=== PATIENT | female | born 1980 | race African-American/Black ===

== ENCOUNTER 2018-08-23 13:27 | Observation (INO) | payer OTHER ==
[~2018-08-23] VITALS: Ht 160 cm; Wt 59.0 kg
--- NOTE | 2018-08-23 13:45 | NUR ---
PATIENT ARRIVED TO UNIT AND AMBULATED TO FLOOR. DENIES ANY DIZZINESS OR HEADACHE. STATES GOES TO WORKOUT ALL THE TIME AND DOES FINE.
[2018-08-23 13:56] VITALS: BP 111/62
--- NOTE | 2018-08-23 14:50 | NUR ---
PATIENT WAS UNDECIDED ON HAVING BLOOD TRANSFUSION. AFTER A LENGTHY DISCUSSION TO WHAT COULD GO WRONG IF SHE DID NOT HAVE THE BLOOD TRANSFUSION, SHE WAS CONVINCED WHEN TOLD TO DO IT FOR HER KIDS IF SHE DID NOT WANT TO DO IT FOR HERSELF. PATIENT ALSO MADE AWARE OF NEED TO SIGN REFUSAL OF TREATMENT RECOMMENDED BY HER DOCTOR IF SHE WAS REFUSING BLOOD TRANSFUSION. PATIENT AGREED TO HAVE TRANSFUSION AND FINALLY SIGNED CONSENT AT 1520.
[2018-08-23 14:59] LABS: BASOPHILS % (AUTO) 1.2 % (0.0-5.0); EOSINOPHILS % (AUTO) 0.1 % (0.0-8.0); LYMPHOCYTES % (AUTO) 54.1 % (21.0-51.0); MEAN CORPUSCULAR HEMOGLOBIN 11.9 pg (27.0-33.0); MEAN CORPUSCULAR HGB CONC 24.5 g/dL (32.0-36.0); MEAN CORPUSCULAR VOLUME 48.5 fL (79-99); MONOCYTES % (AUTO) 11.7 % (3.0-13.0); NEUTROPHILS % (AUTO) 32.9 % (40.0-77.0); NUCLEATED RED BLOOD CELLS 0.4 % (0.0-0.19); PLATELET COUNT (AUTO) 271 K/uL (130-400); RED BLOOD CELL COUNT(AUTO) 4.08 MIL/uL (4.00-5.50); RED CELL DISTRIBUTION WIDTH 22.5 % (11.0-15.5); WHITE BLOOD COUNT (AUTO) 3.5 K/uL (4.8-10.8)
[2018-08-23 15:04] LABS: % IRON SATURATION 1.8 % (22-44)
[2018-08-23 15:13] LABS: HEMATOCRIT 19.8 % (36-48)
[2018-08-23 15:14] LABS: RETICULOCYTE % (AUTO) 1.06 % (0.42-2.23)
[2018-08-23 15:41] VITALS: BP 116/61
[2018-08-23 19:15] VITALS: BP 104/53
--- NOTE | 2018-08-23 19:15 | NUR ---
REPORT GIVEN TO ASHLY SMITH AND NOTED FIRST UNIT OF BLOOD WAS FINISHED. PATIENT STABLE. 2ND UNIT ORDERED.
[2018-08-23 23:16] VITALS: BP 116/60
--- NOTE | 2018-08-24 01:30 | NUR ---
COMMUNICATION: Dr. Abad called informed that after the 3rd unit of Blood Transfusion Hemoglobin and Hematocrit was done per Laboratory protocol. The result was hemoglobin 7.6 and hematocrit of 27.0. She ordered that patient can go home to take iron tablet over the counter daily. Cancel the 4th unit of blood. Patient informed.
[2018-08-24] MEDS ORDERED: FERR-82 PO (01:48)
--- NOTE | 2018-08-24 02:05 | NUR ---
Discharges Instruction given to patient; Patient advice to take Iron tablet over the counter medication daily, Eat fruits and vegetables rich in Iron. Call Dr. Abad' clinic to make a follow up appointment. In case of emergency call 911. Patient verbalizes understanding.
[2018-08-24 02:13] VITALS: BP 117/62
--- NOTE | 2018-08-24 02:20 | NUR ---
Discharges: Patient discharges per wheelchair accompanied by Kellie Martinez&Jamarcus Powers Out of the facility on her private car.
== END 2018-08-24 02:19 | disposition home or self-care (01) ==
LOC: WSH 13:27
PROVIDERS: ADMIT Obstetrics & Gynecology; ATTEND Obstetrics & Gynecology
DX: O99.011 Anemia complicating pregnancy, first trimester (principal); O09.511 Supervision of elderly primigravida, first trimester; N92.0 Excessive and frequent menstruation with regular cycle; O26.891 Other specified pregnancy related conditions, first trimester; Z3A.01 Less than 8 weeks gestation of pregnancy
CPT/HCPCS: 36415 ×2; 36430; 82607; 82728; 83020; 85014; 85018; 85025; 85060; 86850; 86900; 86901; 86922 ×4; G0378 ×14; J7030; P9016 ×3

== ENCOUNTER 2018-09-29 09:25 | Emergency (ER) | payer OTHER ==
[~2018-09-29 09:25] MED LIST: FERR-82 PO
== END 2018-09-29 09:54 | disposition home or self-care (01) ==
LOC: EDH 09:25
DX: Z02.83 Encounter for blood-alcohol and blood-drug test (principal); Z72.0 Tobacco use

== ENCOUNTER 2019-02-09 23:18 | Emergency (ER) | payer OTHER ==
[2019-02-09 23:48] LABS: BILIRUBIN,URINE Negative (NEGATIVE); COLOR,URINE Dark Yellow (YELLOW); GLUCOSE, URINE (UA) Negative (NEGATIVE); KETONES,URINE Negative (NEGATIVE); LEUKOCYTE ESTERASE ,URINE Large (NEGATIVE); NITRATE,URINE Positive (NEGATIVE); OCCULT BLOOD,URINE Large (NEGATIVE); PROTEIN,URINE Negative (NEGATIVE)
[2019-02-09 23:49] LABS: HCG,QUAL RESULT NEGATIVE (NEGATIVE)
[2019-02-09 23:50] LABS: APPEARANCE,URINE SLIGHTLY CLOUDY (CLEAR)
[2019-02-09 23:59] LABS: BACTERIA,URINE Few /HPF (None Seen); WBC,URINE 51-100 /HPF (0-1)
[2019-02-10] MEDS ORDERED: ACETAMINOPHEN 325 MG TAB ONE (00:06)
[2019-02-10] MEDS ORDERED: SODIUM CHLORIDE 0.9% 1000ML 1,000 ML IV ONE (00:06)
[2019-02-10 00:09] LABS: BASOPHILS % (AUTO) 0.4 % (0.0-5.0); EOSINOPHILS % (AUTO) 0.2 % (0.0-8.0); HEMATOCRIT 26.2 % (36-48); LYMPHOCYTES % (AUTO) 13.1 % (21.0-51.0); MEAN CORPUSCULAR HEMOGLOBIN 18.5 pg (27.0-33.0); MEAN CORPUSCULAR HGB CONC 27.1 g/dL (32.0-36.0); MEAN CORPUSCULAR VOLUME 68.4 fL (79-99); MONOCYTES % (AUTO) 13.4 % (3.0-13.0); NEUTROPHILS % (AUTO) 72.6 % (40.0-77.0); PLATELET COUNT (AUTO) 580 K/uL (130-400); RED BLOOD CELL COUNT(AUTO) 3.83 MIL/uL (4.00-5.50); RED CELL DISTRIBUTION WIDTH 20.1 % (11.0-15.5); WHITE BLOOD COUNT (AUTO) 9.1 K/uL (4.8-10.8)
[2019-02-10] MEDS ORDERED: CEFTRIAXONE SODIUM 1 GM ONE (00:16)
[2019-02-10] MEDS ORDERED: SODIUM CHLORIDE 0.9% 50 ML IV ONE (00:17)
[2019-02-10 00:21] LABS: CREATININE 0.8 mg/dL (0.5-1.5); POTASSIUM 3.9 mmol/L (3.5-5.1)
[2019-02-10 00:27] LABS: ALBUMIN 3.5 g/dL (3.5-5.0); BILIRUBIN,TOTAL 0.3 mg/dL (0.2-1.0)
[2019-02-10 00:34] LABS: PLATELET MORPHOLOGY LARGE PLTS PRESENT
[2019-02-10 01:10] LABS: % IRON SATURATION 3.3 % (22-44)
== END 2019-02-10 01:30 | disposition home or self-care (01) ==
LOC: EDH 23:18
DX: N30.00 Acute cystitis without hematuria (principal); D50.9 Iron deficiency anemia, unspecified; Z72.0 Tobacco use; Z98.890 Other specified postprocedural states
CPT/HCPCS: 36415; 80053; 81001; 81025; 82728; 83550; 83540; 83605; 85025; 87040 ×2; 87088; 87804 ×2; 96374; 99284; J0696; J7030